=== PATIENT | female | born 1960 | race Caucasian/White ===

== ENCOUNTER 2017-07-27 20:49 | Emergency (ER) | payer OTHER ==
[~2017-07-27] VITALS: Ht 165.1 cm; Wt 64.4 kg
[2017-07-27] MEDS ORDERED: METOPROLOL SUCC ER 25 MG TAB (21:14)
[2017-07-27] MEDS ORDERED: SYNTHROID 88 MCG TABLET (21:14)
[2017-07-27] MEDS ORDERED: FLUCONAZOLE 100 MG TABLET PO ONE (21:15)
--- NOTE | 2017-07-27 21:15 | NUR ---
PT IN BED. PT'S SPOUSE AT BEDSIDE. PT COMPLAINS OF PAIN AND SWELLING IN MOUTH WITH BURNING IN ESOPHAGUS. SHE CLAIMS TO HAVE BEEN EXPERIENCING THIS FOR "AT LEAST 3 WKS."
[2017-07-27] MEDS ORDERED: FLUCONAZOLE 100 MG TABLET ONE (21:18)
--- NOTE | 2017-07-27 21:34 | NUR ---
PT IN BED. VS WNL. MEDS HAVE BEEN GIVEN AND WELL TOLERATED BY PT. NO SIGNS OR SYMPTOMS OF DISTRESS WITNESS BY NURSE OR EXPRESSED BY PT.
--- NOTE | 2017-07-27 21:45 | NUR ---
Patient discharged to home in stable conditon. Written and verbal after care instructions given. Patient verbalizes understanding of instructions. Patient able to ambulate unassisted with steady gait. Patient left with all personal belongings.
[2017-07-27 21:46] VITALS: BP 148/86
== END 2017-07-27 21:45 | disposition home or self-care (01) ==
LOC: ER 20:50
DX: B37.0 Candidal stomatitis (principal); I10 Essential (primary) hypertension; K21.9 Gastro-esophageal reflux disease without esophagitis; Z79.899 Other long term (current) drug therapy
CPT/HCPCS: A4663